=== PATIENT | female | born 1990 | race Two or more races ===

== ENCOUNTER 2017-06-21 23:51 | Emergency (ER) | payer BC ==
[~2017-06-21] VITALS: Ht 162.6 cm; Wt 76.7 kg
[2017-06-21 23:55] VITALS: BP 130/87
== END 2017-06-22 00:35 | disposition home or self-care (01) ==
LOC: ER 23:51
DX: H92.02 Otalgia, left ear (principal); K12.0 Recurrent oral aphthae; J06.9 Acute upper respiratory infection, unspecified; Z88.1 Allergy status to other antibiotic agents
CPT/HCPCS: A4606; Z7610

== ENCOUNTER 2019-01-13 00:21 | Emergency (ER) | payer BC | END 2019-01-13 02:07 | disposition left against medical advice (07) | DX: Z53.21 Procedure and treatment not carried out due to patient leaving prior to being seen by health care provider (principal) ==

== ENCOUNTER 2019-05-12 10:04 | Emergency (ER) | payer BC ==
[~2019-05-12] VITALS: Ht 162.6 cm; Wt 65.8 kg
--- NOTE | 2019-05-12 10:10 | NUR ---
BIB MOTHER C/O LOWER BACK PAIN SINCE LAST NIGHT AFTER BUTTOCKS LANDED FIRST FROM A REGULAR SLIDE. TO ER BED 9, HOOKED TO MONITOR, AWATING MD GILES. MOTHER AT BEDSIDE
--- NOTE | 2019-05-12 10:11 | NUR ---
DR GARCIA AT BEDSIDE
[2019-05-12] MEDS ORDERED: KETOROLAC TROMETHAMINE INJ 30 MG/ML VIAL ONE (10:13)
[2019-05-12] MEDS ORDERED: IBUPROFEN 600 MG TABLET PO ONE ×2 (10:22→10:30)
[2019-05-12] MEDS ORDERED: KETOROLAC TROMETHAMINE INJ 30 MG/ML VIAL IM ONE (10:30)
--- NOTE | 2019-05-12 10:46 | NUR ---
CASH REGISTER BALANCER AT BEDSIDE
--- NOTE | 2019-05-12 11:17 | NUR ---
Patient discharged to home in stable condition. Written and verbal after care instructions given. Patient verbalizes understanding of instruction.
[2019-05-12 11:18] VITALS: BP 136/80
== END 2019-05-12 11:18 | disposition home or self-care (01) ==
LOC: ER 10:04
DX: S33.8XXA Sprain of other parts of lumbar spine and pelvis, initial encounter (principal); Z88.1 Allergy status to other antibiotic agents; W18.39XA Other fall on same level, initial encounter; Y93.89 Activity, other specified; Y92.89 Other specified places as the place of occurrence of the external cause; Y99.8 Other external cause status
CPT/HCPCS: 72220-TC; J1885

== ENCOUNTER 2024-08-25 21:58 | Emergency (ER) | payer BC, OTHER ==
[~2024-08-25] VITALS: Ht 162.6 cm; Wt 88.9 kg
[2024-08-25 23:00] VITALS: TEMP 98.2
[2024-08-25] MEDS: KETOROLAC TROMETHAMINE 15 MG/ML VIAL IV ONE (23:31)
[2024-08-25] MEDS: IV NS 0.9% 1,000 ML BAG IV ONE (23:31)
[2024-08-25] MEDS ORDERED: ACETAMINOPHEN ES 500 MG TABLET ONE (23:35)
[2024-08-25] MEDS: ACETAMINOPHEN ES 500 MG TABLET PO ONE (23:41)
[2024-08-25 23:43] LABS: APPEARANCE,URINE SLIGHTLY CLOUDY (CLEAR); BILIRUBIN,URINE NEGATIVE (NEGATIVE); BLOOD, URINE TRACE Ery/uL (NEGATIVE); COLOR,URINE YELLOW (YELLOW); KETONES,URINE NEGATIVE (NEGATIVE); LEUKOCYTE ESTERASE ,URINE NEGATIVE (NEGATIVE); NITRITE, URINE NEGATIVE (NEGATIVE); PROTEIN,URINE NEGATIVE (NEGATIVE); UGLUCOSE NEGATIVE (NEGATIVE); UROBILINOGEN,URINE 0.2 EU/dL (0.2)
[2024-08-26 00:35] LABS: BACTERIA,URINE Many /HPF (None Seen); SQUAMOUS EPITHELIAL CELL,UR Many /HPF (None Seen)
[2024-08-26 00:36] LABS: ADD URINE CULTURE YES
[2024-08-26 00:41] LABS: PREGNANCY TEST URINE QUAL NEGATIVE (NEGATIVE)
[2024-08-26] MEDS ORDERED: TIZA4TAB5 PO (00:53)
[2024-08-26] MEDS ORDERED: CIPR-263 PO (00:53)
[2024-08-26 01:03] VITALS: BP 151/90; O2SAT 100
[2024-08-26] MEDS ORDERED: CEPH500C2 PO (10:51)
== END 2024-08-26 01:11 | disposition home or self-care (01) ==
LOC: ER 22:03
DX: R10.31 Right lower quadrant pain (principal); M54.9 Dorsalgia, unspecified; Z88.0 Allergy status to penicillin
CPT/HCPCS: 81001; 84703-TC; 87086-TC

== ENCOUNTER 2025-05-11 13:50 | Emergency (ER) | payer OTHER ==
[~2025-05-11] VITALS: Ht 162.6 cm; Wt 88.5 kg
[~2025-05-11 13:50] MED LIST: CEPH500C2 PO; TIZA4TAB5 PO
[2025-05-11 14:38] LABS: PLATELET COUNT (AUTO) 256 K/uL (150-450); RED BLOOD CELL COUNT(AUTO) 4.54 MIL/uL (4.0-5.2); RED CELL DISTRIBUTION WIDTH 13.6 % (11.5-15.0); WHITE BLOOD COUNT (AUTO) 11.2 K/uL (4.3-11.0)
[2025-05-11 14:39] LABS: APPEARANCE,URINE SLIGHTLY CLOUDY (CLEAR); BLOOD, URINE NEGATIVE Ery/uL (NEGATIVE); LEUKOCYTE ESTERASE ,URINE NEGATIVE (NEGATIVE); NITRITE, URINE NEGATIVE (NEGATIVE); UGLUCOSE NEGATIVE (NEGATIVE)
[2025-05-11 14:42] LABS: PREGNANCY TEST URINE QUAL NEGATIVE (NEGATIVE)
[2025-05-11 14:43] LABS: CALCIUM, SERUM 9.0 mg/dL (8.5-10.1); CREATININE 0.5 mg/dL (0.6-1.3); SODIUM SERUM 136.0 mmol/L (136-145); UREA NITROGEN, BLOOD 13.0 mg/dL (7-18)
[2025-05-11 14:49] LABS: ASPARTATE AMINOTRANSFERASE 25.0 U/L (15-37); TOTAL PROTEIN, SERUM 8.3 g/dL (6.4-8.2)
[2025-05-11 15:09] LABS: ADD URINE CULTURE YES
[2025-05-11] MEDS: MAG HYDROX/AL HYDROX/SIMETH 30 ML UDC PO ONE (16:09)
[2025-05-11] MEDS ORDERED: LIDOCAINE VISCOUS 2% UD 15 ML UDC ONE (16:09)
[2025-05-11] MEDS ORDERED: MAG HYDROX/AL HYDROX/SIMETH 30 ML UDC ONE (16:09)
[2025-05-11] MEDS: LIDOCAINE VISCOUS 2% UD 15 ML UDC MM ONE (16:10)
[2025-05-11] MEDS ORDERED: ESOM20CA PO (16:55)
[2025-05-11] MEDS ORDERED: PANTOPRAZOLE 40 MG TABLET.DR PO ONE (17:02)
[2025-05-11] MEDS: PANTOPRAZOLE 40 MG TABLET.DR PO ONE (17:03)
[2025-05-11 17:36] VITALS: BP 136/88; TEMP 98.1; O2SAT 98
== END 2025-05-11 17:37 | disposition home or self-care (01) ==
LOC: ER 14:01
DX: R10.13 Epigastric pain (principal); Z88.0 Allergy status to penicillin
CPT/HCPCS: 36415; 76705-TC; 80048-TC; 80076-TC; 81001; 83690-TC; 84703-TC; 85025-TC; 87086-TC